=== PATIENT | male | born 1940 | race Caucasian/White ===

== ENCOUNTER 2017-10-25 08:26 | Inpatient (IN) | payer MEDICARE, OTHER ==
[~2017-10-25] VITALS: Ht 167.6 cm; Wt 70.2 kg
[~2017-10-25 08:26] MED LIST: ALBU90OI INH; CHOL10002 PO; CITALOPRAM PO; DOCU100 PO; ENOX40I SC; FURO20 PO; HYDACE10B PO; LABE100 PO; LOSA50 PO; Lovastatin20 MG PO; Potassium Chlo10 ME1 PO; TERAZOSIN PO; Testostero100 MG/1 M IM
[2017-10-25] MEDS ORDERED: LOSARTAN POTASSIUM PO (08:45)
[2017-10-25] MEDS ORDERED: VITAMIN D-32000 UNI1 PO (08:45)
[2017-10-25 09:10] LABS: BASOPHILS ABSOLUTE AUTO 0.11 K/mm3 (0.00-0.23); BASOPHILS PERCENT AUTO 1 % (0-2); EOSINOPHILS ABSOLUTE AUTO 0.74 K/mm3 (0.00-0.68); EOSINOPHILS PERCENT AUTO 7 % (0-6); Hemoglobin 12.7 g/dL (13.5-17.5); IMMATURE GRAN ABSOLUTE AUTO 0.04 K/mm3 (0.00-0.10); IMMATURE GRAN PERCENT AUTO 0 % (0-1); LYMPHOCYTES ABSOLUTE AUTO 1.81 K/mm3 (0.84-5.20); LYMPHOCYTES PERCENT AUTO 18 % (21-46); MONOCYTES ABSOLUTE AUTO 0.83 K/mm3 (0.16-1.47); MONOCYTES PERCENT AUTO 8 % (4-13); Mean Corpuscular HGB 29.7 pg (26.0-34.0); Mean Corpuscular HGB Conc 32.6 g/dL (31.5-36.5); Mean Corpuscular Volume 91 fL (80-100); Mean Platelet Volume 8.9 fL (9.1-12.4); NEUTROPHILS PERCENT AUTO 65 % (41-73); Platelet Count 266 K/mm3 (150-400); RDW Coefficient Variation 13.1 % (11.7-14.2); RDW Standard Deviation 43.4 fL (35.1-46.3); Red Blood Cell Count 4.27 M/mm3 (4.30-5.90); White Blood Cell Count 10.03 K/mm3 (4.00-11.30)
[2017-10-25 09:36] LABS: Alanine Aminotransfer (ALT/SGP 16 U/L (12-78); Albumin, Blood 3.4 g/dL (3.4-5.0); Albumin/Globulin Ratio 0.9 (0.8-1.8); Alk Phos 72 U/L (50-136); Anion Gap 4 mmol/L (6-16); Aspartate Aminotrans (AST/SGOT 18 U/L (12-37); Bilirubin, Total 0.8 mg/dL (0.1-1.0); Blood Urea Nitrogen 13 mg/dL (8-24); Bun/Creatinine Ratio 9.9 (12.0-20.0); CO2, Blood 31 mmol/L (21-32); Calcium, Blood 8.8 mg/dL (8.5-10.1); Chloride, Blood 103 mmol/L (98-108); Creatinine, Blood 1.31 mg/dL (0.60-1.20); Globulin, Blood 3.7 g/dL (2.2-4.0); Glomerular Filtration Rate 57 (60-); Glucose, Blood 98 mg/dL (70-99); Potassium, Blood 4.1 mmol/L (3.5-5.5); Sodium, Blood 138 mmol/L (136-145); Total Protein, Blood 7.1 g/dL (6.4-8.2)
[2017-10-25 09:46] LABS: Troponin I 0.893 ng/mL (0.000-0.040)
[2017-10-25 11:25] LABS: CHOL/HDL RATIO 2.6; Cholesterol 98 mg/dL (50-200); HDL Cholesterol 38 mg/dL (>39); LDL/HDL RATIO 0.8; Low Density Lipoprotein Chol 32 mg/dL (0-110); Triglycerides 142 mg/dL (30-160); Very Low Density Lipoprot Chol 28 mg/dL (6-32)
[2017-10-25 11:39] LABS: International Normalized Ratio 0.97; Prothrombin Time Results 10.1 Sec (9.7-11.5)
[2017-10-25] MEDS ORDERED: ASPI325 PO (12:10)
[2017-10-26 03:16] LABS: U Amphetamine Screen Not Detected; U Barbituate Screen Not Detected; U Benzodiazapine Screen Not Detected; U Buprenorphine Screen Not Detected; U Cannabinoids Screen DETECTED; U Cocaine Screen Not Detected; U Methadone Screen Not Detected; U Methamphetamine Screen Not Detected; U Opiates Screen Not Detected; U Oxycodone Screen Not Detected; U Phencyclidine Screen Not Detected; U Propoxyphene Screen Not Detected
[2017-10-26 05:10] LABS: BASOPHILS ABSOLUTE AUTO 0.12 K/mm3 (0.00-0.23); BASOPHILS PERCENT AUTO 1 % (0-2); EOSINOPHILS ABSOLUTE AUTO 0.76 K/mm3 (0.00-0.68); EOSINOPHILS PERCENT AUTO 7 % (0-6); Hematocrit 36.4 % (37.0-53.0); IMMATURE GRAN ABSOLUTE AUTO 0.05 K/mm3 (0.00-0.10); IMMATURE GRAN PERCENT AUTO 1 % (0-1); LYMPHOCYTES ABSOLUTE AUTO 2.81 K/mm3 (0.84-5.20); LYMPHOCYTES PERCENT AUTO 26 % (21-46); MONOCYTES ABSOLUTE AUTO 1.03 K/mm3 (0.16-1.47); MONOCYTES PERCENT AUTO 10 % (4-13); Mean Corpuscular HGB 29.7 pg (26.0-34.0); Mean Corpuscular Volume 90 fL (80-100); Mean Platelet Volume 8.8 fL (9.1-12.4); NEUTROPHILS ABSOLUTE AUTO 6.05 K/mm3 (1.96-9.15); NEUTROPHILS PERCENT AUTO 56 % (41-73); Platelet Count 271 K/mm3 (150-400); RDW Coefficient Variation 12.9 % (11.7-14.2); RDW Standard Deviation 42.8 fL (35.1-46.3); Red Blood Cell Count 4.04 M/mm3 (4.30-5.90); White Blood Cell Count 10.82 K/mm3 (4.00-11.30)
[2017-10-26 05:39] LABS: Bun/Creatinine Ratio 10.2 (12.0-20.0); Calcium, Blood 8.4 mg/dL (8.5-10.1); Creatinine, Blood 1.27 mg/dL (0.60-1.20); Magnesium, Blood 2.2 mg/dL (1.6-2.4); Potassium, Blood 4.2 mmol/L (3.5-5.5)
== END 2017-10-26 16:41 | disposition short-term general hospital (02) | DRG 282 ==
LOC: ER 08:26 → PCU 08:27
PROVIDERS: Emergency Medicine; Internal Medicine
PROC: 4A023N7 Measurement of Cardiac Sampling and Pressure, Left Heart, Percutaneous Approach (ICD-10-PCS; principal; 2017-10-26)
PROC: B2111ZZ Fluoroscopy of Multiple Coronary Arteries using Low Osmolar Contrast (ICD-10-PCS; 2017-10-26)
DX: I21.4 Non-ST elevation (NSTEMI) myocardial infarction (principal); E78.5 Hyperlipidemia, unspecified; I12.9 Hypertensive chronic kidney disease with stage 1 through stage 4 chronic kidney disease, or unspecified chronic kidney disease; N18.3 Chronic kidney disease, stage 3 (moderate); N40.0 Benign prostatic hyperplasia without lower urinary tract symptoms; F41.9 Anxiety disorder, unspecified; I25.110 Atherosclerotic heart disease of native coronary artery with unstable angina pectoris
CPT/HCPCS: 36415; 71046; 80048; 80053; 80061; 83036; 83735; 84484; 85025; 85610; 85730; 93005; 93010; 93306; 93454; 99152; 99153; 99285; C1751; C1769; C1894; C9113; J1644; J2250; J2405; J3010; J7030; Q9967